=== PATIENT | male | born 1995 | race African-American/Black ===

== ENCOUNTER 2017-05-13 18:21 | Emergency (ER) | payer OTHER ==
[~2017-05-13] VITALS: Ht 188 cm; Wt 144.8 kg
[2017-05-13 19:44] VITALS: BP 167/86
== END 2017-05-13 19:46 ==
LOC: EME 18:21
PROC: 2W38X1Z Immobilization of Right Upper Extremity using Splint (ICD-10-PCS; principal; 2017-05-13)
DX: S62.306A Unspecified fracture of fifth metacarpal bone, right hand, initial encounter for closed fracture (principal); W22.01XA Walked into wall, initial encounter; F17.200 Nicotine dependence, unspecified, uncomplicated
CPT/HCPCS: 99281; 99283